=== PATIENT | male | born 1975 | race Caucasian/White ===

== ENCOUNTER 2017-11-30 03:14 | Emergency (ER) | payer BC ==
[~2017-11-30] VITALS: Ht 177.8 cm; Wt 87.1 kg
[2017-11-30] MEDS ORDERED: NAPROSYN500 MG PO (03:27)
[2017-11-30 03:49] LABS: HEMATOCRIT 40.8 % (42.0-52.0); HEMOGLOBIN 14.6 gm/dL (14.0-18.0); MCH 31.3 pg (26.0-34.0); MCHC 35.7 g/dL (28.0-37.0); MCV 87.8 fL (80.0-100.0); RBC 4.65 mil/uL (4.50-6.00); RDW 12.7 % (10.5-14.5); WBC 7.8 thou/uL (4.0-11.0)
[2017-11-30 03:59] LABS: CALCIUM 8.7 mg/dL (8.5-10.1); CREATININE 0.8 mg/dL (0.7-1.3); POTASSIUM 3.9 mmol/L (3.5-5.1)
[2017-11-30 04:05] LABS: ALBUMIN 3.7 g/dL (3.4-5.0); TOTAL BILIRUBIN 0.9 mg/dL (<0.1-1.0); TOTAL PROTEIN 7.4 g/dL (6.4-8.2)
[2017-11-30] MEDS ORDERED: CIPROFLOXACIN500 M1 PO (04:48)
== END 2017-11-30 05:00 | disposition home or self-care (01) ==
LOC: ER 03:14
PROVIDERS: Emergency Medicine
DX: K52.9 Noninfective gastroenteritis and colitis, unspecified (principal); F17.210 Nicotine dependence, cigarettes, uncomplicated